=== PATIENT | male | born 1985 | race Caucasian/White ===

== ENCOUNTER 2018-06-02 20:10 | Emergency (ER) | payer SELFPAY ==
[~2018-06-02] VITALS: Ht 162.6 cm; Wt 97.5 kg
[2018-06-02 20:15] VITALS: BP 148/88
--- NOTE | 2018-06-02 20:19 | NUR ---
PT TAKEN TO BED 4
--- NOTE | 2018-06-02 20:20 | NUR ---
PT BIB SELF C/O RT EAR ACHE X 7 HOURS NO DRAINAGE OR BLEEDING. PT IS AWAKE AND ACTING APPROPRIATE, APPEARS TO BE IN NO ACUTE DISTRESS AT THIS TIME.
[2018-06-02 20:44] VITALS: BP 148/88
--- NOTE | 2018-06-02 20:44 | NUR ---
Patient discharged with v/s stable. Written and verbal after care instructions given and explained. Patient alert, oriented and verbalized understanding of instructions. Ambulatory with steady gait. All questions addressed prior to discharge. ID band removed. Patient advised to follow up with PMD. Rx of MOTRIN, AMOXICILLIN given. Patient educated on indication of medication including possible reaction and side effects. Opportunity to ask questions provided and answered.
== END 2018-06-02 20:44 | disposition home or self-care (01) ==
LOC: MED 20:10
DX: H66.91 Otitis media, unspecified, right ear (principal)
CPT/HCPCS: 99283

== ENCOUNTER 2019-11-27 20:01 | Emergency (ER) | payer SELFPAY ==
[~2019-11-27] VITALS: Ht 162.6 cm; Wt 97.5 kg
[2019-11-27 20:30] VITALS: BP 137/83
--- NOTE | 2019-11-27 20:34 | NUR ---
PT WAITING IN LOBBY. PT AMBUALTED WITH STEADY GAIT.
--- NOTE | 2019-11-27 21:07 | NUR ---
PT AMBULATED TO BED 12 WITH STEADY GAIT.
--- NOTE | 2019-11-27 21:25 | NUR ---
PT BIB SELF FOR C/O HINKLE 12/20 X 5 DAYS. PT STATES R SIDE OF FACE HAS NUMBNESS THAT COMES AND GOES. PT BEFAST NEGATIVE. BP:137/86. DENIES BLURRED VISION, DIZZYNESS, OR N/V. PT DENIES TAKING OTC PAIN MEDICATON TO HELP WITH PAIN. VSS. A&O X4. STEADY GAIT. 12/20 HINKLE PAIN THAT RADIATES TO LEFT EYE SOCKET AND LEFT SIDE OF FACE. A&O X4. SPEECH CLEAR. FACE IS SYMMETRICAL. NKDA. DENIES ANY PMH.
[2019-11-27] MEDS ORDERED: NACL 0.9% 1,000 ML IV ONE (22:25)
[2019-11-27] MEDS ORDERED: diphenhydrAMINE 50 MG/ML VIAL IVP ONE (22:25)
[2019-11-27] MEDS ORDERED: METOCLOPRAMIDE 10 MG/2 ML INJ VIAL IVP ONE (22:25)
[2019-11-27] MEDS ORDERED: KETOROLAC 15 MG/ML VIAL IVP ONE (22:25)
[2019-11-28 00:22] VITALS: BP 137/83
--- NOTE | 2019-11-28 00:22 | NUR ---
Patient discharged with v/s stable. Written and verbal after care instructions given and explained. Patient verbalized understanding. Ambulatory with steady gait. All questions addressed prior to discharge. Advised to follow up with PMD.
== END 2019-11-28 00:22 | disposition home or self-care (01) ==
LOC: MED 20:01
DX: G44.009 Cluster headache syndrome, unspecified, not intractable (principal)
CPT/HCPCS: 96374; 96375; 99284; J1200; J1885; J2765; J7030